=== PATIENT | male | born 1975 | race Caucasian/White ===

== ENCOUNTER 2023-12-25 14:12 | Emergency (ER) | payer BC ==
[2023-12-25 14:30] VITALS: RESP 18; TEMP 98.6; BMI 27.8
[2023-12-25] MEDS ORDERED: ALBUTEROL SO4 2.5/IPRATROPIUM 0.5 INH SOL 3 ML VIAL.NEB. NEB ONE (15:06)
[2023-12-25] MEDS ORDERED: predniSONE 20 MG TABLET (UD) ONE (15:07)
[2023-12-25] MEDS: predniSONE 20 MG TABLET (UD) PO ONE (15:11)
[2023-12-25] MEDS: ALBUTEROL SO4 2.5/IPRATROPIUM 0.5 INH SOL 3 ML VIAL.NEB. NEB ONE (15:11)
[2023-12-25 18:09] VITALS: BP 126/85; PULSE 80
== END 2023-12-25 18:21 | disposition home or self-care (01) ==
LOC: JER 14:12
PROC: 3E0F7GC Introduction of Other Therapeutic Substance into Respiratory Tract, Via Natural or Artificial Opening (ICD-10-PCS; principal; 2023-12-25)
DX: R06.2 Wheezing (principal); R05.9 Cough, unspecified; R06.02 Shortness of breath
CPT/HCPCS: 71250-TC; 99284-25